=== PATIENT | male | born 1965 | race Caucasian/White ===

== ENCOUNTER 2023-04-14 21:24 | Inpatient (IN) | payer MEDICAID ==
[~2023-04-14] VITALS: Ht 157.5 cm; Wt 80.7 kg
[2023-04-14] MEDS ORDERED: ASPIRIN 325 MG TABLET PO ONE (22:00)
[2023-04-14] MEDS ORDERED: ASPIRIN 325 MG TABLET ONE (22:10)
[2023-04-14 22:28] LABS: BASOPHILS # (AUTO) 0.1 K/uL (0.0-0.2); BASOPHILS % (AUTO) 0.8 % (0.0-2.0); EOSINOPHILS # (AUTO) 0.3 K/uL (0.0-0.7); EOSINOPHILS % (AUTO) 3.2 % (0.0-6.0); HEMATOCRIT 42 % (39-51); LYMPHOCYTES # (AUTO) 2.4 K/uL (0.8-4.8); LYMPHOCYTES % (AUTO) 25.1 % (20.0-44.0); MEAN CORPUSCULAR HEMOGLOBIN 28 PG (26.0-33.0); MEAN CORPUSCULAR HGB CONC 33 g/dl (31.0-36.0); MEAN CORPUSCULAR VOLUME 84 fL (80-96); NEUTROPHILS # (AUTO) 5.8 K/uL (1.8-8.9); NEUTROPHILS % (AUTO) 60.9 % (43.0-81.0); PLATELET COUNT (AUTO) 197 K/uL (150-450); RED CELL DISTRIBUTION WIDTH 14.2 % (11.5-15.0); WHITE BLOOD COUNT (AUTO) 9.5 K/uL (4.3-11.0)
[2023-04-14] MEDS ORDERED: hydrALAZINE HCL IV 20 MG VIAL ONE (22:35)
[2023-04-14 22:41] LABS: CALCIUM, SERUM 9.1 mg/dL (8.5-10.1); CARBON DIOXIDE 23 mmol/L (21-32); CHLORIDE 102 mmol/L (98-107); GLUCOSE 141 mg/dL (74-106); POTASSIUM 4.2 mmol/L (3.5-5.1); SODIUM SERUM 134 mmol/L (136-145); UREA NITROGEN, BLOOD 19 mg/dL (7-18)
[2023-04-14] MEDS ORDERED: hydrALAZINE HCL IV 20 MG VIAL IV ONE ×2 (23:00)
[2023-04-14] MEDS ORDERED: LABETALOL HCL IV 100MG VIAL ONE (23:51)
[2023-04-15] VITALS (7 sets, daily range): BP systolic 140–184; BP diastolic 56–106; TEMP 96.3–98.4; O2SAT 95–97
[2023-04-15] MEDS ORDERED: LABETALOL 20 MG/4 ML VIAL IV ONE
[2023-04-15] MEDS ORDERED: FUROSEMIDE 20 MG/2 ML VIAL IV ONE (00:30)
[2023-04-15] MEDS ORDERED: NITROGLYCERIN 0.4 MG/TAB BOTTLE SL ONE ×2 (00:30→16:30)
[2023-04-15] MEDS ORDERED: FUROSEMIDE 20 MG/2 ML VIAL ONE (00:33)
[2023-04-15] MEDS ORDERED: ONDANSETRON HCL/PF 4 MG/2 ML VIAL ONE (00:45)
[2023-04-15] MEDS ORDERED: ONDANSETRON HCL/PF 4 MG/2 ML VIAL IV ONE (01:00)
[2023-04-15] MEDS ORDERED: HYDROCODONE/APAP 5/325MG TABLET PO PRN (03:30)
[2023-04-15] MEDS ORDERED: ZOLPIDEM TARTRATE 5 MG TABLET PO PRN (03:30)
[2023-04-15] MEDS ORDERED: DEXTROSE 50%-WATER 50 ML DISP.SYRIN IV PRN (03:30)
[2023-04-15] MEDS ORDERED: ACETAMINOPHEN 325 MG TABLET PO PRN (03:30)
[2023-04-15] MEDS: BLOOD SUGAR DIAGNOSTIC 1 EACH STRIP VI SCH ×4 (06:37→21:46)
[2023-04-15] MEDS: *INSULIN REGULAR(HUMULIN R)HUM 100 UNIT/ML VIAL SQ PRN ×2 (06:38→21:43)
[2023-04-15] MEDS: INSULIN REGULAR, HUMAN 100 UNIT/ML 3 ML VIAL SQ PRN (06:41)
[2023-04-15 07:22] LABS: BASOPHILS # (AUTO) 0.1 K/uL (0.0-0.2); BASOPHILS % (AUTO) 0.5 % (0.0-2.0); EOSINOPHILS # (AUTO) 0.1 K/uL (0.0-0.7); EOSINOPHILS % (AUTO) 1.1 % (0.0-6.0); HEMATOCRIT 42 % (39-51); HEMOGLOBIN 13.7 g/dL (13.5-17.5); LYMPHOCYTES # (AUTO) 2.2 K/uL (0.8-4.8); MEAN CORPUSCULAR HEMOGLOBIN 27 PG (26.0-33.0); MEAN CORPUSCULAR HGB CONC 33 g/dl (31.0-36.0); MEAN CORPUSCULAR VOLUME 83 fL (80-96); MONOCYTES # (AUTO) 0.7 K/uL (0.1-1.30); MONOCYTES % (AUTO) 6.3 % (2.0-12.0); NEUTROPHILS # (AUTO) 8.3 K/uL (1.8-8.9); NEUTROPHILS % (AUTO) 73.1 % (43.0-81.0); PLATELET COUNT (AUTO) 210 K/uL (150-450); RED BLOOD CELL COUNT(AUTO) 5.01 MIL/uL (4.5-6.0); RED CELL DISTRIBUTION WIDTH 14.1 % (11.5-15.0); WHITE BLOOD COUNT (AUTO) 11.3 K/uL (4.3-11.0)
[2023-04-15 07:46] LABS: CALCIUM, SERUM 9.5 mg/dL (8.5-10.1); CREATININE 1.2 mg/dL (0.6-1.3); POTASSIUM 4.3 mmol/L (3.5-5.1)
[2023-04-15] MEDS: ASPIRIN 81 MG TAB.CHEW PO SCH (08:50)
[2023-04-15] MEDS: LISINOPRIL (20MG) 20 MG TABLET PO SCH (08:51)
[2023-04-15] MEDS: PANTOPRAZOLE 40 MG TABLET.DR PO SCH (08:51)
[2023-04-15] MEDS ORDERED: CARVEDILOL 12.5 MG TABLET PO SCH (09:00)
[2023-04-15] MEDS ORDERED: ZOLP5TAB8 PO (09:03)
[2023-04-15] MEDS ORDERED: CARV6.252 PO (09:03)
[2023-04-15] MEDS ORDERED: ATOR10TA PO (09:03)
[2023-04-15] MEDS ORDERED: LOSA100T31 PO (09:03)
[2023-04-15] MEDS ORDERED: ASPI-1420 PO (09:46)
[2023-04-15] MEDS ORDERED: CLON0.1T PO (09:46)
[2023-04-15] MEDS ORDERED: ATOR40TA PO (11:24)
[2023-04-15] MEDS ORDERED: ASPI-1169 PO (11:24)
[2023-04-15] MEDS ORDERED: CARV12.52 PO (11:24)
[2023-04-15] MEDS ORDERED: LISI20TA30 PO (11:24)
[2023-04-15] MEDS ORDERED: CT SWABBABLE VALVE TRANS SET 1 EA INFUS.SET MC ONE (16:11)
[2023-04-15] MEDS ORDERED: IV NS 0.9% 250 ML IV ONE (16:11)
[2023-04-15] MEDS ORDERED: IOHEXOL-350 100 ML VIAL IV ONE (16:11)
[2023-04-15] MEDS ORDERED: NITROGLYCERIN 0.4 MG/TAB BOTTLE ONE (16:29)
[2023-04-15] MEDS ORDERED: METOPROLOL TARTRATE INJ 5 MG/5 ML AMPUL ONE ×3 (16:29→16:39)
[2023-04-15] MEDS: METOPROLOL TARTRATE INJ 5 MG/5 ML AMPUL IVP PRN ×4 (16:29→16:44)
[2023-04-15 17:01] LABS: CHLORIDE,URINE RANDOM 35 mmol/L (55-125); POTASSIUM RNDM,URINE 11 mmol/L (25-125); URINE SODIUM, RANDOM 31 mmol/l (40-220)
[2023-04-15] MEDS: CARVEDILOL 12.5 MG TABLET PO SCH (20:31)
[2023-04-15] MEDS: CLONIDINE HCL 0.1 MG TABLET PO PRN (20:31)
[2023-04-15] MEDS ORDERED: AMLODIPINE BESYLATE 5 MG TABLET PO SCH (21:00)
[2023-04-16 04:00] VITALS: BP 169/96; TEMP 98.3; O2SAT 97
[2023-04-16] MEDS: CLONIDINE HCL 0.1 MG TABLET PO PRN (05:50)
[2023-04-16] MEDS: BLOOD SUGAR DIAGNOSTIC 1 EACH STRIP VI SCH (05:50)
[2023-04-16] MEDS: INSULIN REGULAR, HUMAN 100 UNIT/ML 3 ML VIAL SQ PRN (05:53)
[2023-04-16 07:00] VITALS: BP 145/1; TEMP 97.6; O2SAT 96
[2023-04-16] MEDS ORDERED: NICOTINE PATCH (21MG) 21 MG PATCH.TD24 TD SCH (09:00)
[2023-04-16] MEDS ORDERED: AMLODIPINE BESYLATE 5 MG TABLET PO SCH (09:00)
[2023-04-16] MEDS: LISINOPRIL (20MG) 20 MG TABLET PO SCH (09:01)
[2023-04-16] MEDS: PANTOPRAZOLE 40 MG TABLET.DR PO SCH (09:01)
[2023-04-16 09:02] VITALS: BP 145/91
[2023-04-16] MEDS: ASPIRIN 81 MG TAB.CHEW PO SCH (09:02)
[2023-04-16] MEDS: CARVEDILOL 12.5 MG TABLET PO SCH (09:02)
[2023-04-16] MEDS ORDERED: AMLO10TA4 PO (09:08)
[2023-04-16] MEDS ORDERED: CARV12.52 PO (09:08)
== END 2023-04-16 10:10 | disposition home or self-care (01) | DRG 199 ==
LOC: ER 21:26 → TELE 04-15 02:49
PROVIDERS: ADMIT Internal Medicine; ATTEND Internal Medicine
DX: I16.1 Hypertensive emergency (principal); E11.9 Type 2 diabetes mellitus without complications; F17.210 Nicotine dependence, cigarettes, uncomplicated; E78.5 Hyperlipidemia, unspecified; I25.10 Atherosclerotic heart disease of native coronary artery without angina pectoris; Z95.5 Presence of coronary angioplasty implant and graft; I25.2 Old myocardial infarction; G47.30 Sleep apnea, unspecified; Z71.6 Tobacco abuse counseling; Z79.84 Long term (current) use of oral hypoglycemic drugs
CPT/HCPCS: 36415; 70450-TC; 71045-TC; 75574; 80048-TC; 80061-TC; 82436-TC; 82962-TC; 83880; 83935-TC; 84133-TC; 84300-TC; 84484-TC; 85025-TC; 93307-TC; G0378; J0360; J1815; J1940; J2405; J3490; J7050; Q9967